=== PATIENT | female | born 1990 | race Two or more races ===

== ENCOUNTER 2021-12-23 14:16 | Emergency (ER) | payer BC ==
[~2021-12-23] VITALS: Ht 160 cm; Wt 93.0 kg
[2021-12-23] MEDS ORDERED: ACETAMINOPHEN ES 500 MG TABLET PO ONE (15:00)
[2021-12-23] MEDS ORDERED: ACETAMINOPHEN ES 500 MG TABLET ONE (15:08)
--- NOTE | 2021-12-23 15:10 | NUR ---
US TECH AT BEDSIDE
[2021-12-23 16:23] VITALS: BP 132/76
--- NOTE | 2021-12-23 16:23 | NUR ---
Patient discharged to home in stable condition. Written and verbal after care instructions given. Patient verbalizes understanding of instruction.
== END 2021-12-23 16:24 | disposition home or self-care (01) ==
LOC: ER 14:23
DX: O26.893 Other specified pregnancy related conditions, third trimester (principal); R10.31 Right lower quadrant pain; Z3A.31 31 weeks gestation of pregnancy; V49.59XA Passenger injured in collision with other motor vehicles in traffic accident, initial encounter; Y93.89 Activity, other specified; Y92.413 State road as the place of occurrence of the external cause; Y99.8 Other external cause status
CPT/HCPCS: 76856-TC